=== PATIENT | female | born 1950 | race Caucasian/White ===

== ENCOUNTER → 2017-10-27 13:13 | Outpatient (CLI) | payer MEDICARE, OTHER, SELFPAY ==
[2017-10-27 13:53] LABS: Alanine Aminotransferase 32 IU/L (9-52); Albumin 3.9 g/dL (3.5-5.0); Albumin Globulin Ratio 1.5 (1.0-2.8); Alkaline Phosphatase 44 U/L (38-126); Aspartate Aminotransferase 27 IU/L (14-36); Bilirubin Total 0.4 mg/dL (0.2-1.3); Blood Urea Nitrogen 21 mg/dL (7-17); Calcium 9.7 mg/dL (8.4-10.2); Carbon Dioxide 25 mmol/L (22-32); Chloride 107 mmol/L (98-107); Estimated Glomerular Filt Rate > 60.0 mL/min (>60); Globulin 2.6 g/dL (1.7-4.1); Glucose 137 mg/dL (80-110); HEMOLYSIS < 15 (0-50); Potassium 3.9 mmol/L (3.4-5.1); Sodium 142 mmol/L (137-145); Total Protein 6.5 g/dL (6.3-8.2)
[2017-10-29 15:18] LABS: Cancer Antigen 27.29 8 U/mL (< 38)
== END ==
PROVIDERS: PCP Family Medicine; Visit Provider Internal Medicine Hematology & Oncology
DX: C50.911 Malignant neoplasm of unspecified site of right female breast (principal)
CPT/HCPCS: 36415; 80053; 86300

== ENCOUNTER → 2017-11-12 14:45 | Outpatient (CLI) | payer MEDICARE, OTHER, SELFPAY | PROVIDERS: PCP Family Medicine; Visit Provider Physician Assistant | DX: N39.0 Urinary tract infection, site not specified (principal) | CPT/HCPCS: 87077; 87086; 87186 ==

== ENCOUNTER → 2017-11-23 09:13 | Outpatient (CLI) | payer MEDICARE, OTHER, SELFPAY | PROVIDERS: PCP Family Medicine; Visit Provider Family Medicine | DX: R73.9 Hyperglycemia, unspecified (principal) | CPT/HCPCS: 36415; 83036 ==

== ENCOUNTER → 2018-01-21 09:05 | Outpatient (CLI) | payer MEDICARE, OTHER, SELFPAY ==
--- NOTE | 2018-01-21 09:06 | DI.RAD.S_ITS ---
PROCEDURE: XR SHOULDER LT MIN 2V INDICATIONS: left shoulder pain TECHNIQUE: 3 views of the shoulder were acquired. COMPARISON: None. FINDINGS: Bones: No fractures or dislocations. No suspicious bony lesions. Visualized ribs appear intact. Mild joint narrowing with periarticular osteophyte formation of the acromioclavicular and glenohumeral joint. Soft tissues: No suspicious soft tissue calcifications. IMPRESSION: Mild acromioclavicular and glenohumeral joint degeneration. Dictated by: Chevy Kent [facility] Interpreted: Tamanna Gongora MD on 01/21/2018 at 10:22 Approved by: Tamanna Gongora M.D. on 01/21/2018 at 10:50
== END ==
PROVIDERS: PCP Family Medicine; Visit Provider Family Medicine
DX: M25.512 Pain in left shoulder (principal); M19.012 Primary osteoarthritis, left shoulder
CPT/HCPCS: 73030

== ENCOUNTER → 2018-04-04 12:16 | Outpatient (CLI) | payer MEDICARE, OTHER, SELFPAY ==
--- NOTE | 2018-04-04 | DI.MG.S_ITS ---
BILATERAL DIGITAL SCREENING MAMMOGRAM 3D/2D WITH CAD: 04/04/2018 CLINICAL: Routine screening. Personal history of breast cancer. Comparison is made to exams dated: 04/01/2017 mammogram, 03/25/2016 mammogram, and 03/22/2015 mammogram - [facility]. The tissue of both breasts is heterogeneously dense. This may lower the sensitivity of mammography. Current study was also evaluated with a Computer Aided Detection (CAD) system. There are benign post operative findings in the right breast. There also are benign calcifications in both breasts. No significant masses, calcifications, or other findings are seen in either breast. There has been no significant interval change. IMPRESSION: There is no mammographic evidence of malignancy. A 1 year screening mammogram is recommended. This exam was interpreted at Station ID: [id number]. NOTE: For mammograms, a report in lay terms will be sent to the patient. Approximately 15% of breast malignancies will not be visualized mammographically. In the management of a palpable breast mass, a negative mammogram must not discourage biopsy of a clinically suspicious lesion. Electronically Signed By: Chato land/janet:04/04/2018 13:50:31 copy to: [employer] letter sent: Normal Exam ACR BI-RADS Category 2: Benign Finding(s) 3342F
== END ==
PROVIDERS: PCP Family Medicine
DX: Z12.31 Encounter for screening mammogram for malignant neoplasm of breast (principal); Z85.3 Personal history of malignant neoplasm of breast
CPT/HCPCS: 77063; 77067

== ENCOUNTER → 2018-04-25 13:12 | Outpatient (CLI) | payer MEDICARE, OTHER, SELFPAY ==
[2018-04-25 13:58] LABS: Add Manual Diff / Slide Review NO; Basophils Absolute Auto 100 /uL (0-100); Basophils Percent Auto 0.8 % (0-2); Eosinophils Absolute Auto 200 /uL (0-450); Eosinophils Percent Auto 2.3 % (2-4); Hemoglobin 12.9 g/dL (12.0-16.0); Lymphocytes Absolute Auto 2300 /uL (1100-4500); Lymphocytes Percent Auto 32.4 % (25-40); Mean Corpuscular HGB Conc 33.1 % (30-36); Mean Corpuscular Hemoglobin 31.7 PG (26-34); Mean Corpuscular Volume 95.9 fL (80-100); Monocytes Absolute Auto 600 /uL (0-900); Neutrophils Absolute Auto 4100 /uL (1500-7000); Neutrophils Percent Auto 56.5 % (50-75); Platelet Count 149 X10^3/uL (150-400); Red Blood Cell Count 4.07 X10^6/uL (4.0-5.2); Red Cell Distribution Width 14.1 % (11.6-14.8); White Blood Cell Count 7.2 X10^3/uL (4.5-11.0)
[2018-04-25 14:11] LABS: Alanine Aminotransferase 29 IU/L (9-52); Albumin Globulin Ratio 1.5 (1.0-2.8); Alkaline Phosphatase 61 U/L (38-126); Aspartate Aminotransferase 19 IU/L (14-36); BUN Creatinine Ratio 18.9 (6-22); Bilirubin Total 0.3 mg/dL (0.2-1.3); Blood Urea Nitrogen 17 mg/dL (7-17); Calcium 8.9 mg/dL (8.4-10.2); Carbon Dioxide 26 mmol/L (22-32); Chloride 105 mmol/L (98-107); Estimated Glomerular Filt Rate > 60.0 mL/min (>60); Globulin 2.6 g/dL (1.7-4.1); Glucose 119 mg/dL (80-110); HEMOLYSIS < 15 (0-50); Potassium 3.9 mmol/L (3.4-5.1); Sodium 140 mmol/L (137-145); Total Protein 6.6 g/dL (6.3-8.2)
== END ==
PROVIDERS: PCP Family Medicine
DX: C50.911 Malignant neoplasm of unspecified site of right female breast (principal); Z79.810 Long term (current) use of selective estrogen receptor modulators (SERMs)
CPT/HCPCS: 36415; 80053; 85025

== ENCOUNTER → 2018-08-23 09:25 | Outpatient (CLI) | payer MEDICARE, OTHER, SELFPAY ==
[2018-08-23 11:38] LABS: Hemoglobin A1C% w Est Avg Glu 5.7 % (4.0-6.0)
== END ==
PROVIDERS: PCP Family Medicine; Visit Provider Family Medicine
DX: R73.03 Prediabetes (principal)
CPT/HCPCS: 36415; 83036

== ENCOUNTER → 2018-11-16 08:54 | Outpatient (CLI) | payer MEDICARE, OTHER, SELFPAY ==
[2018-11-16 09:56] LABS: Hemoglobin A1C% w Est Avg Glu 5.8 % (4.0-6.0)
[2018-11-16 10:12] LABS: Cholesterol 153 mg/dL (140-199); HDL Cholesterol 42 mg/dL (40-60); LDL Cholesterol Calculated 89 mg/dL (<100); Triglycerides 111 mg/dL (35-150)
== END ==
PROVIDERS: PCP Family Medicine; Visit Provider Family Medicine
DX: E78.00 Pure hypercholesterolemia, unspecified (principal); R73.03 Prediabetes
CPT/HCPCS: 36415; 80061; 83036

== ENCOUNTER → 2018-12-19 12:16 | Outpatient (CLI) | payer MEDICARE, OTHER, SELFPAY | PROVIDERS: Family Provider Family Medicine; PCP Family Medicine | DX: C50.911 Malignant neoplasm of unspecified site of right female breast (principal); M85.852 Other specified disorders of bone density and structure, left thigh; Z78.0 Asymptomatic menopausal state; Z90.722 Acquired absence of ovaries, bilateral; Z79.810 Long term (current) use of selective estrogen receptor modulators (SERMs) | CPT/HCPCS: 77080 ==

== ENCOUNTER → 2019-04-06 08:56 | Outpatient (CLI) | payer MEDICARE, OTHER, SELFPAY ==
--- NOTE | 2019-04-06 08:59 | DI.MG.S_ITS ---
BILATERAL DIGITAL SCREENING MAMMOGRAM 3D/2D WITH CAD: 04/06/2019 CLINICAL: Routine screening. Personal history of right breast cancer. Comparison is made to exams dated: 04/04/2018 mammogram, 04/01/2017 mammogram, 03/25/2016 mammogram, 03/22/2015 mammogram, and 03/21/2014 mammogram - [facility]. The tissue of both breasts is heterogeneously dense. This may lower the sensitivity of mammography. Current study was also evaluated with a Computer Aided Detection (CAD) system. There are benign calcifications in both breasts. There also are benign post operative findings in the right breast. No significant masses, calcifications, or other findings are seen in either breast. There has been no significant interval change. IMPRESSION: There is no mammographic evidence of malignancy. A 1 year screening mammogram is recommended. This exam was interpreted at Station ID: [id number]. NOTE: For mammograms, a report in lay terms will be sent to the patient. Approximately 15% of breast malignancies will not be visualized mammographically. In the management of a palpable breast mass, a negative mammogram must not discourage biopsy of a clinically suspicious lesion. Electronically Signed By: Star Camilo M.D. slc/:04/06/2019 09:50:35 copy to: Eli Carroll M.D., [facility] [employer], ph: [phone], fax: [phone] letter sent: Normal Exam ACR BI-RADS Category 2: Benign Finding(s) 3342F
== END ==
PROVIDERS: Family Provider Family Medicine; PCP Family Medicine
DX: Z12.31 Encounter for screening mammogram for malignant neoplasm of breast (principal); C50.911 Malignant neoplasm of unspecified site of right female breast
CPT/HCPCS: 77063; 77067

== ENCOUNTER → 2019-04-17 08:21 | Outpatient (CLI) | payer MEDICARE, OTHER, SELFPAY ==
[2019-04-17 08:40] LABS: Add Manual Diff / Slide Review NO; Basophils Absolute Auto 100 /uL (0-100); Basophils Percent Auto 0.8 % (0-2); Eosinophils Absolute Auto 200 /uL (0-450); Eosinophils Percent Auto 2.5 % (2-4); Hematocrit 38.5 % (36-46); Hemoglobin 12.9 g/dL (12.0-16.0); Lymphocytes Absolute Auto 2000 /uL (1100-4500); Lymphocytes Percent Auto 29.9 % (25-40); Mean Corpuscular HGB Conc 33.5 % (30-36); Mean Corpuscular Hemoglobin 32.1 PG (26-34); Mean Corpuscular Volume 95.8 fL (80-100); Monocytes Absolute Auto 500 /uL (0-900); Monocytes Percent Auto 7.5 % (3-14); Neutrophils Absolute Auto 4000 /uL (1500-7000); Neutrophils Percent Auto 59.3 % (50-75); Platelet Count 156 X10^3/uL (150-400); Red Blood Cell Count 4.02 X10^6/uL (4.0-5.2); Red Cell Distribution Width 14.3 % (11.6-14.8); White Blood Cell Count 6.8 X10^3/uL (4.5-11.0)
[2019-04-17 08:52] LABS: Alanine Aminotransferase 23 IU/L (<35); Albumin 3.9 g/dL (3.5-5.0); Albumin Globulin Ratio 1.3 (1.0-2.8); Alkaline Phosphatase 44 U/L (38-126); Aspartate Aminotransferase 22 IU/L (14-36); BUN Creatinine Ratio 25.7 (6-22); Bilirubin Total 0.3 mg/dL (0.2-1.3); Blood Urea Nitrogen 18 mg/dL (7-17); Calcium 8.9 mg/dL (8.4-10.2); Carbon Dioxide 29 mmol/L (22-32); Chloride 108 mmol/L (98-107); Estimated Glomerular Filt Rate > 60.0 mL/min (>60); Globulin 2.9 g/dL (1.7-4.1); Glucose 99 mg/dL (80-110); HEMOLYSIS < 15 (0-50); Potassium 4.3 mmol/L (3.4-5.1); Sodium 142 mmol/L (137-145); Total Protein 6.8 g/dL (6.3-8.2)
[2019-04-17 08:55] LABS: Hemoglobin A1C% w Est Avg Glu 6.1 % (4.0-6.0)
== END ==
PROVIDERS: Family Provider Family Medicine; PCP Family Medicine
DX: C50.911 Malignant neoplasm of unspecified site of right female breast (principal); R73.03 Prediabetes
CPT/HCPCS: 36415; 80053; 83036; 85025

== ENCOUNTER → 2019-10-24 08:42 | Outpatient (CLI) | payer MEDICARE, OTHER, SELFPAY ==
[2019-10-25 07:40] LABS: COVID19 Sendout Not Detected (Not Detect)
== END ==
PROVIDERS: Family Provider Family Medicine; PCP Family Medicine; Visit Provider Nurse Practitioner
DX: Z11.59 Encounter for screening for other viral diseases (principal)
CPT/HCPCS: 87635

== ENCOUNTER 2019-10-27 07:27 | Day surgery (SDC) | payer MEDICARE, OTHER, SELFPAY ==
--- NOTE | 2019-10-27 | PATH_ITS ---
[facility] Accession Number: [id number] . 01 Material submitted: . body - POLYP AT 100CM . 02 Diagnosis: Colon, Polyp at 100 cm, Biopsy: Tubular adenoma. MRV 10/31/2019 1401 Local . 02 Electronically signed: . Vaishali Parker MD, Pathologist NPI- [id number] . 01 Gross description: . POLYP AT 100CM: Received in formalin is 1 fragment(s) of zamarripa, soft tissue measuring 0.4 x 0.3 x 0.3 cm which is inked, bisected and submitted entirely in 1 cassette(s) /QBJ 10/28/2019 0657 Local . 02 Pathologist provided ICD-10: D12.6 . 02 CPT . 212750 Performed at: 01 [facility] [address] [id number] MD Yuri Dawson MD Phone: [phone] Performed at: 02 [facility] [address] [place], [place] [id number] MD Vaishali Parker MD Phone: [phone]
[2019-10-27 07:59] VITALS: BP 155/92; PULSE 97; RESP 16; TEMP 36.4; O2SAT 96; BMI 38.5
[2019-10-27] MEDS: SODIUM CHLORIDE 0.9% 1,000 ML 200 ML IV (07:59)
--- NOTE | 2019-10-27 08:05 | PM.HP.1 ---
History of Present Illness History of Present Illness Date Patient Seen: 10/27/19 Time Patient Seen: 08:05 Chief complaint: SCREENING COLONOSCOPY Narrative: This is a 69-year-old woman with history of screening colonoscopy 10 years ago. She says that was normal. She was told to come back in 10 years. Since then she has not had any changes in her bowel habits, melena, hematochezia, unexplained abdominal pain, unexplained weight loss. She denies any known significant family history of colon polyps or colon cancers. However, she was adopted and is not aware of all those details. She denies any significant medical problems or any cardiac abnormalities. She has been told she has long QT syndrome. She also has some nausea with anesthesia. ROS: Sleep apnea, anxiety, arthritis, ankle pain/back pain, urinary frequency/urgency. Thirteen system review is otherwise negative other than as mentioned below and in HPI. PE: GENERAL: Well groomed and cooperative. Appears stated age. Answers questions promptly and appropriately. Vital signs noted. HENT: Normocephalic, atraumatic. Hearing intact. EYES: Conjunctiva pink, sclera white, no periorbital swelling. CARDIOVASCULAR: Regular rate. No pedal edema. RESPIRATORY: Non-tachypneic, breathing comfortably on room air. GASTROINTESTINAL: Abdomen soft and non-distended GENITALURINARY: No flank tenderness. MUSCULOSKELETAL: Equal tone and mass bilaterally. SKIN: Warm, dry, soft, appropriate color for ethnicity. No other lesions, rashes, or wounds. NEURO: Alert and Oriented X 3. No gross sensory deficits, or cognitive issues. PSYCH: Appropriate affect and mood. Patient History Medical History Breast cancer (Chronic ~2013) Chicken pox (Resolved ~1955) Chronic back pain (Chronic ~1998) Endometriosis (Chronic ~1989) Essential hypertension (Chronic) Fractures (Resolved ~2008) Measles (Resolved ~1956) Osteoporosis (Chronic ~2013) Surgical History Anesthesia (Resolved) History of ankle surgery (Resolved ~2008) History of hysterectomy (Resolved ~1989) History of lumpectomy (Resolved ~2013) Torn rotator cuff (Resolved ~2010) Family & Social History Family History Unknown No problems noted. Social History: household members spouse lives independently Yes caregiver/support person No Tobacco & Substance use: Smoking Status Never smoker alcohol intake current Meds Home Medications and Allergies Home Medications Medication Instructions Recorded Confirmed Type acetaminophen [Tylenol Extra 500 mg PO Q6H PRN 11/03/17 10/27/19 History Strength] calcium carbonate 600 mg PO BID 11/03/17 10/27/19 History cholecalciferol (vitamin D3) 2,000 unit PO DAILY 11/03/17 10/27/19 History [Vitamin D3] ibuprofen-diphenhydramine cit 2 cap PO BEDTIME PRN 11/03/17 10/27/19 History [Advil PM] Respironics Dreamstation CPAP #1 ea 05/18/18 11/16/18 History cyclobenzaprine 5 mg tablet 5 mg PO TID PRN #30 tab 11/22/18 10/27/19 Rx tamoxifen 20 mg PO QDAY #30 tab 03/20/19 10/27/19 Rx lisinopril 5 mg tablet 5 mg PO DAILY #30 tab 09/26/19 10/27/19 Rx Allergies Allergy/AdvReac Type Severity Reaction Status Date / Time Cultivated Oat Pollen Allergy Unknown Sinus Uncoded 10/27/19 07:50 (POLLEN,CULTIVATED OAT) headache, itchy eyes Assessment & Plan Assessment and plan (1) At average risk for colon cancer: Status: Acute Assessment & Plan narrative: Risks and benefits of screening colonoscopy and possible polypectomy were discussed with the patient including risk of bleeding, perforation, need for additional procedures, risks of anesthesia. The patient desires to proceed with the colonoscopy procedure. COVID-19 COVID-19 status: Negative Result date/Date tested (Pos, Neg/Pending): 10/24/19 Time Spent With Patient Time with patient: 15-24 minutes Quality VTE Deep Vein Thrombosis/Pulmonary Embolism Present on Admission: No
[2019-10-27] MEDS: ONDANSETRON 4 MG/2 ML INJ IV (08:15)
--- NOTE | 2019-10-27 08:15 | P.OP.ENDO_ITS ---
Operative Date/Time/Diagnoses Date of procedure: 10/27/19 Time of procedure: 08:15 Pre-op diagnosis: Average risk for colon cancer Post-op diagnosis: other (single polyp ) Procedure & Clinicians Study performed: Colonoscopy Procedural sedation performed by the endoscopist Polypectomy from 100 cm using cold snare Indications: Average risk for colon cancer, 10 years since last screening colonoscopy Surgeon: Rosy Cisneros Procedure Notes SCOAP/Timeout: Performed Procedure in detail: The patient was brought to the room and placed in left lateral decubitus position with all bony prominences padded. A time-out was performed and then the patient was given procedural sedation starting with 2 mg of Versed and 100 mcg of fentanyl. Total of 4 mg of Versed and 200 micro g of fentanyl were used for the entire procedure. Vitals were monitored throughout the procedure and remained stable. Once adequately sedated, the procedure was begun. A rectal exam was performed revealing no abnormalities. The colonoscope was then introduced to the rectum and advanced to the cecum in the usual fashion. The colon was quite tortuous and required multiple maneuvers to reach the cecum safely, including using the scope stiffener, turning the patient on he r back, and using counter pressure on the abdomen in order to pass the scope.. The cecum was identified by the appendiceal orifice, the mucosal tri-fold, and the ileocecal valve. The scope was then retracted while rotating side to side and examining each mucosal fold. A 5 mm polyp was found at 100 cm and removed completely with cold snare. It was collected and sent for pathology. At the conclusion of the procedure retroflexion was performed and small grade 1-2 internal hemorrhoids without stigmata of bleeding were seen. The scope was then withdrawn from the rectum the procedure was concluded. The patient tolerated the procedure well and was transferred to the PACU in stable condition. Scope withdrawal time: 8 Sedation minutes: 31 Findings: polyp (Single adenomatous appearing polyp at 100 cm) Specimen(s): other (Polyp) Complications: none Impression: Single polyp, the remainder of the colon appeared normal Post-procedure Recommendations: Colonscopy in 10 years (So long as pathology results are low- grade) Follow up: weeks Disposition: PACU
[2019-10-27] MEDS: MIDAZOLAM 5 MG/5 ML VIAL IV (08:19)
[2019-10-27] MEDS: fentaNYL 250 MCG/5 ML INJ IV (08:19)
[2019-10-27 08:56] VITALS: BP 139/81; PULSE 89; RESP 20; TEMP 36.3; O2SAT 93
[2019-10-27 09:01] VITALS: BP 144/80; PULSE 86; RESP 20; TEMP 35.7; O2SAT 92
[2019-10-27 09:13] VITALS: BP 141/81; PULSE 84; RESP 20; TEMP 36.3; O2SAT 92
== END 2019-10-27 09:15 | disposition home or self-care (01) ==
PROVIDERS: Family Provider Family Medicine; PCP Family Medicine; Referring Provider Family Medicine; Visit Provider Surgery
PROC: 0DJD8ZZ Inspection of Lower Intestinal Tract, Via Natural or Artificial Opening Endoscopic (ICD-10-PCS; CPT 45378; principal; 2019-10-27 08:30)
DX: Z12.11 Encounter for screening for malignant neoplasm of colon (principal); K64.0 First degree hemorrhoids; D12.6 Benign neoplasm of colon, unspecified
CPT/HCPCS: 45385; 99152; 99153; J2250; J2405; J3010

== ENCOUNTER → 2020-04-08 08:13 | Outpatient (CLI) | payer MEDICARE, OTHER, SELFPAY ==
--- NOTE | 2020-04-08 08:15 | DI.MG.S_ITS ---
BILATERAL DIGITAL SCREENING MAMMOGRAM 3D/2D WITH CAD POST LUMPECTOMY: 04/08/2020 CLINICAL: Routine screening. Breast cancer. Comparison is made to exams dated: 04/06/2019 mammogram, 04/04/2018 mammogram, and 04/01/2017 mammogram - [facility]. The tissue of both breasts is heterogeneously dense. This may lower the sensitivity of mammography. Current study was also evaluated with a Computer Aided Detection (CAD) system. There are benign calcifications in both breasts. There also are benign post operative findings in the right breast. No significant masses, calcifications, or other findings are seen in either breast. There has been no significant interval change. IMPRESSION: BENIGN There is no mammographic evidence of malignancy. A 1 year screening mammogram is recommended. This exam was interpreted at Station ID: [id number]. NOTE: For mammograms, a report in lay terms will be sent to the patient. Approximately 15% of breast malignancies will not be visualized mammographically. In the management of a palpable breast mass, a negative mammogram must not discourage biopsy of a clinically suspicious lesion. Electronically Signed By: Nathan Del Rio M.D., jr/janet:04/08/2020 09:16:01 copy to: Eli Carroll M.D., [facility] [employer], ph: [phone], fax: [phone] letter sent: Normal Exam ACR BI-RADS Category 2: Benign Finding(s) 3342O
== END ==
PROVIDERS: Family Provider Family Medicine; PCP Family Medicine; Referring Provider Family Medicine; Visit Provider Family Medicine
DX: Z12.31 Encounter for screening mammogram for malignant neoplasm of breast (principal); C50.911 Malignant neoplasm of unspecified site of right female breast
CPT/HCPCS: 77063; 77067

== ENCOUNTER → 2020-05-23 08:28 | Outpatient (CLI) | payer MEDICARE, OTHER, SELFPAY ==
[2020-05-23 09:11] LABS: Add Manual Diff / Slide Review NO; Basophils Absolute Auto 100 /uL (0-100); Basophils Percent Auto 1.5 % (0-2); Eosinophils Absolute Auto 200 /uL (0-450); Eosinophils Percent Auto 3.7 % (2-4); Hematocrit 41.4 % (36-46); Hemoglobin 13.6 g/dL (12.0-16.0); Lymphocytes Absolute Auto 2200 /uL (1100-4500); Lymphocytes Percent Auto 38.6 % (25-40); Mean Corpuscular HGB Conc 32.8 % (30-36); Mean Corpuscular Hemoglobin 31.2 PG (26-34); Mean Corpuscular Volume 94.9 fL (80-100); Monocytes Absolute Auto 500 /uL (0-900); Neutrophils Absolute Auto 2700 /uL (1500-7000); Neutrophils Percent Auto 47.2 % (50-75); Platelet Count 163 X10^3/uL (150-400); Red Blood Cell Count 4.36 X10^6/uL (4.0-5.2); Red Cell Distribution Width 14.5 % (11.6-14.8); White Blood Cell Count 5.6 X10^3/uL (4.5-11.0)
[2020-05-23 09:38] LABS: Alanine Aminotransferase 28 IU/L (<35); Albumin 4.1 g/dL (3.5-5.0); Albumin Globulin Ratio 1.5 (1.0-2.8); Alkaline Phosphatase 52 U/L (38-126); Aspartate Aminotransferase 30 IU/L (14-36); BUN Creatinine Ratio 24.7 (6-22); Bilirubin Total 0.3 mg/dL (0.2-1.3); Bilirubin Unconjugated 0.4 mg/dL (0.0-1.1); Blood Urea Nitrogen 18 mg/dL (7-17); Estimated Glomerular Filt Rate > 60.0 mL/min (>60); Globulin 2.8 g/dL (1.7-4.1); HEMOLYSIS < 15 (0-50); Total Protein 6.9 g/dL (6.3-8.2)
== END ==
PROVIDERS: Family Provider Family Medicine; PCP Family Medicine; Referring Provider Podiatrist; Visit Provider Podiatrist
DX: B35.1 Tinea unguium (principal); B35.3 Tinea pedis
CPT/HCPCS: 36415; 80076; 82565; 84520; 85025

== ENCOUNTER → 2020-06-26 08:25 | Outpatient (CLI) | payer MEDICARE, OTHER, SELFPAY ==
[2020-06-26 09:12] LABS: Add Manual Diff / Slide Review NO; Basophils Absolute Auto 100 /uL (0-100); Basophils Percent Auto 0.9 % (0-2); Eosinophils Absolute Auto 100 /uL (0-450); Hematocrit 41.6 % (36-46); Hemoglobin 13.6 g/dL (12.0-16.0); Lymphocytes Absolute Auto 2200 /uL (1100-4500); Lymphocytes Percent Auto 35.4 % (25-40); Mean Corpuscular HGB Conc 32.8 % (30-36); Mean Corpuscular Hemoglobin 31.5 PG (26-34); Mean Corpuscular Volume 95.9 fL (80-100); Monocytes Absolute Auto 600 /uL (0-900); Monocytes Percent Auto 9.3 % (3-14); Neutrophils Absolute Auto 3200 /uL (1500-7000); Neutrophils Percent Auto 52.4 % (50-75); Platelet Count 175 X10^3/uL (150-400); Red Blood Cell Count 4.34 X10^6/uL (4.0-5.2); Red Cell Distribution Width 14.5 % (11.6-14.8); White Blood Cell Count 6.1 X10^3/uL (4.5-11.0)
[2020-06-26 10:05] LABS: Alanine Aminotransferase 23 IU/L (<35); Albumin Globulin Ratio 1.5 (1.0-2.8); Alkaline Phosphatase 52 U/L (38-126); Aspartate Aminotransferase 26 IU/L (14-36); BUN Creatinine Ratio 20.3 (6-22); Bilirubin Total 0.4 mg/dL (0.2-1.3); Bilirubin Unconjugated 0.3 mg/dL (0.0-1.1); Blood Urea Nitrogen 15 mg/dL (7-17); Estimated Glomerular Filt Rate > 60.0 mL/min (>60); Globulin 2.6 g/dL (1.7-4.1); HEMOLYSIS < 15 (0-50); Total Protein 6.6 g/dL (6.3-8.2)
== END ==
PROVIDERS: Family Provider Family Medicine; PCP Family Medicine; Referring Provider Podiatrist; Visit Provider Podiatrist
DX: B35.1 Tinea unguium (principal); B35.3 Tinea pedis
CPT/HCPCS: 36415; 80076; 82565; 84520; 85025

== ENCOUNTER → 2021-04-12 09:52 | Outpatient (CLI) | payer MEDICARE, OTHER, SELFPAY ==
--- NOTE | 2021-04-12 09:53 | DI.MG.S_ITS ---
BILATERAL DIGITAL SCREENING MAMMOGRAM 3D/2D WITH CAD: 04/12/2021 CLINICAL: Routine screening. Personal history of right breast cancer. Comparison is made to exams dated: 04/08/2020 mammogram, 04/06/2019 mammogram, and 04/04/2018 mammogram - [facility]. The tissue of both breasts is heterogeneously dense. This may lower the sensitivity of mammography. Current study was also evaluated with a Computer Aided Detection (CAD) system. There are benign calcifications in both breasts. There also are benign post operative findings in the right breast. No significant masses, calcifications, or other findings are seen in either breast. There has been no significant interval change. IMPRESSION: BENIGN There is no mammographic evidence of malignancy. A 1 year screening mammogram is recommended. This exam was interpreted at Station ID: [id number]. NOTE: For mammograms, a report in lay terms will be sent to the patient. Approximately 15% of breast malignancies will not be visualized mammographically. In the management of a palpable breast mass, a negative mammogram must not discourage biopsy of a clinically suspicious lesion. Electronically Signed By: Esperanza pate/janet:04/14/2021 12:11:57 copy to: Eli Carroll M.D., [facility] [place], ph: [phone], fax: [phone] letter sent: Normal Exam ACR BI-RADS Category 2: Benign Finding(s) 3342Y
== END ==
PROVIDERS: Family Provider Family Medicine; PCP Family Medicine; Referring Provider Family Medicine; Visit Provider Family Medicine
DX: Z12.31 Encounter for screening mammogram for malignant neoplasm of breast (principal); Z85.3 Personal history of malignant neoplasm of breast
CPT/HCPCS: 77063; 77067

== ENCOUNTER 2021-08-10 10:13 | Emergency (ER) | payer MEDICARE, OTHER, SELFPAY ==
[2021-08-10 10:45] VITALS: BP 151/74; PULSE 71; RESP 18; TEMP 36.8; O2SAT 96
--- NOTE | 2021-08-10 10:59 | DI.RAD.S_ITS ---
PROCEDURE: XR WRIST LT MIN 3V INDICATIONS: trip and fall TECHNIQUE: 4 views of the wrist were acquired. COMPARISON: [facility], , WRIST MINIMUM 3 VIEWS LEFT, 10/17/2015, 9:26. FINDINGS: Bones: Punctate corticated calcification along the radial styloid likely sequela of remote trauma versus degenerative changes. No acute fracture. Mild degenerative changes of the wrist and hand. Alignment is normal. Scaphoid view: No fracture Soft tissues: No suspicious soft tissue calcifications. Mild soft tissue swelling of the dorsal aspect of the wrist. IMPRESSION: No acute osseous abnormality. Dictated by: Miguel Dee D.O. on 08/10/2021 at 10:32 Approved by: Miguel Dee D.O. on 08/10/2021 at 10:34
--- NOTE | 2021-08-10 12:08 | ED_ITS ---
HPI - Extremity Injury (Upper) <Bonifacio Toledo PA-C - Last Filed: 08/10/21 19:33> General Chief Complaint: Extremity Injury, Upper Stated Complaint: poss. broken lt wrist Time Seen by Provider: 08/10/21 11:57 Source: patient Mode of arrival: Ambulatory History of Present Illness HPI narrative: Patient is a 71-year-old female who presents to the emergency department for evaluation left wrist pain. Patient states that approximately 6 hours ago she tripped over a dog toy in her home and landed on her left wrist. She states she has been experiencing personally worsening pain in the left wrist, stating that the pain is sharp with intermittent tingling sensations. Of note, she also states that pain is worse with movement. She denies hitting her head or losing consciousness as a result of the fall and states that she is not anticoagulated daily. She denies any fever, chills, chest pain, cough, shortness of breath, nausea, vomiting, diarrhea, constipation, abdominal pain, dysuria, hematuria, or any other concerning symptoms. No further concerns were voiced at this time. Related Data Home Medications Medication Instructions Recorded Confirmed acetaminophen 500 mg tablet 500 mg PO Q6H PRN Pain (Scale 11/03/17 10/30/20 (Tylenol Extra Strength) Score 4-6) calcium carbonate 600 mg calcium 600 mg PO BID 11/03/17 10/30/20 (1,500 mg) tablet ibuprofen-diphenhydramine citrate 2 cap PO BEDTIME PRN Pain (Scale 11/03/17 10/30/20 200 mg-38 mg tablet (Advil PM) Score 4-6) Respironics Dreamstation CPAP #1 ea 05/18/18 10/30/20 Previous Rx's Medication Instructions Recorded lisinopril 5 mg tablet 5 mg PO DAILY #90 tabs 10/30/20 Allergies Allergy/AdvReac Type Severity Reaction Status Date / Time Cultivated Oat Pollen Allergy Unknown Sinus Uncoded 01/03/20 08:18 (POLLEN,CULTIVATED OAT) headache, itchy eyes Review of Systems <Bonifacio Toledo PA-C - Last Filed: 08/10/21 19:33> Constitutional Constitutional: Denies chills, Denies fatigue, Denies fever(s), Denies frequent falls, Denies lethargy and Denies weakness ENT Ears, Nose, Mouth, and Throat: Denies neck pain Cardiovascular Cardiovascular: Denies chest pain, Denies irregular heart rhythm, Denies lightheadedness, Denies palpitations, Denies dyspnea, Denies dyspnea on exertion and Denies orthopnea Respiratory Respiratory: Denies dyspnea and Denies dyspnea on exertion Gastrointestinal Gastrointestinal: Denies abdominal pain, Denies change in bowel habits, Denies diarrhea, Denies nausea and Denies vomiting Genitourinary Genitourinary: Denies hematuria, Denies flank pain, Denies urinary incontinence and Denies urinary urgency Musculoskeletal Musculoskeletal: Denies back pain, Denies deformity, Reports arthralgias (Left wrist), Denies joint swelling, Denies muscle weakness, Denies neck pain, Denies numbness and Reports tingling Integumentary/Breasts Skin/Breast: Denies pruritus, Denies erythema, Denies rash and Denies wounds Neurologic Neurologic: Denies frequent falls, Denies numbness, Reports tingling and Denies weakness Endocrine Endocrine: Denies fatigue and Denies palpitations Patient History <Bonifacio Toledo PA-C - Last Filed: 08/10/21 19:33> Medical History Breast cancer (~2013) Chicken pox (~1955) Chronic back pain (~1998) Endometriosis (~1989) Essential hypertension Fractures (~2008) Measles (~1956) Osteoporosis (~2013) Surgical History Anesthesia History of ankle surgery (~2008) History of hysterectomy (~1989) History of lumpectomy (~2013) Torn rotator cuff (~2010) Family History Unknown No problems noted. Social History marital status: number of children: 2 household members: spouse lives independently: Yes caregiver/support person: No housing: house occupational status: previously employed current occupational exposures/hazards: No seatbelt use: always Smoking Status: Never smoker second hand exposure: No alcohol intake: current substance use type: does not use Smoking Status: Never smoker alcohol intake frequency: holidays/special occasions only Substance Use Type: does not use Exam <Bonifacio Toledo PA-C - Last Filed: 08/10/21 19:33> Narrative Exam Narrative: GENERAL: 71 year old patient appears stated age. Well-developed patient, in no acute distress. HEAD: Atraumatic. Normocephalic. EYES: Pupils equal round and reactive. Extraocular motions intact. No scleral icterus. No injection or drainage. ENT: Nose without bleeding, purulent drainage. Throat without erythema, tonsill ar hypertrophy or exudate. Airway patent. NECK: Trachea midline. Non tender CARDIOVASCULAR: Regular rate and rhythm without murmurs, gallops, or rubs. RESPIRATORY: Clear to auscultation. Breath sounds equal bilaterally. No wheezes, rales, or rhonchi. GASTROINTESTINAL: Abdomen soft, non-tender, nondistended. EXTREMITIES: No edema. Mild tenderness to palpation appreciated generally about the left wrist without any signs of gross deformity. No overlying erythema or ecchymosis appreciated. Patient is able to pronate and supinate the hands bilaterally without any difficulty or discomfort. Good sensation light touch appreciated throughout the bilateral upper extremities. Gross motor function intact throughout the bilateral upper extremities. BACK: Nontender without deformity or crepitance. No flank tenderness. NEURO: AOx3. SKIN: No rash or erythema of visible areas Initial Vital Signs Initial Vital Signs: Vital Signs Temperature 98.2 F 08/10/21 10:45 Pulse Rate 71 08/10/21 10:45 Respiratory Rate 18 08/10/21 10:45 Blood Pressure 151/74 H 08/10/21 10:45 Pulse Oximetry 96 08/10/21 10:45 Oxygen Delivery Method 08/10/21 10:45 <Kayode Fernandez MD - Last Filed: 08/10/21 20:56> Initial Vital Signs Initial Vital Signs: Vital Signs Temperature 98.2 F 08/10/21 10:45 Pulse Rate 71 08/10/21 10:45 Respiratory Rate 18 08/10/21 10:45 Blood Pressure 151/74 H 08/10/21 10:45 Pulse Oximetry 96 08/10/21 10:45 Oxygen Delivery Method 08/10/21 10:45 Course <Bonifacio Toledo PA-C - Last Filed: 08/10/21 19:33> Course Course Narrative: X-ray of left wrist obtained. No acute bony abnormality such as fracture dislocation identified. Orders Ordered: ED Orders 08/10/21 10:59 XR wrist LT min 3V Stat Vital Signs Vital signs: Vital Signs - 8 hr 08/10/21 12:14 Pulse Rate 65 Respiratory Rate 16 Blood Pressure 140/63 Pulse Oximetry 96 Oxygen Delivery Method Room Air <Kayode Fernandez MD - Last Filed: 08/10/21 20:56> Orders Ordered: ED Orders 08/10/21 10:59 XR wrist LT min 3V Stat Vital Signs Vital signs: Vital Signs - 8 hr 08/10/21 12:14 Pulse Rate 65 Respiratory Rate 16 Blood Pressure 140/63 Pulse Oximetry 96 Oxygen Delivery Method Room Air MDM - Extremity Injury (Upper) <Bonifacio Toledo PA-C - Last Filed: 08/10/21 19:33> Imaging Data Extremity x-ray #1: Radiologist's Impression: PROCEDURE:? XR WRIST LT MIN 3V ? INDICATIONS: trip and fall ? TECHNIQUE:? 4 views of the wrist were acquired.? ? COMPARISON:? [facility], , WRIST MINIMUM 3 VIEWS LEFT, 10/17/2015, 9:26. ? FINDINGS:? ? Bones:? Punctate corticated calcification along the radial styloid likely sequela of remote trauma versus degenerative changes.? No acute fracture.? Mild degenerative changes of the wrist and hand.? Alignment is normal. ? Scaphoid view:? No fracture ? Soft tissues:? No suspicious soft tissue calcifications.? Mild soft tissue swelling of the dorsal aspect of the wrist. ? IMPRESSION:? ? No acute osseous abnormality. ? ? Dictated by: Miguel Dee D.O. on 08/10/2021 at 10:32 ? ? Approved by: Miguel Dee D.O. on 08/10/2021 at 10:34 ? [facility] Narrative Medical decision making narrative: Differential diagnosis to consider but not limited to fracture versus dislocation versus sprain versus strain. X-ray imaging obtained in the emergency department today did not show signs of acute bony abnormality such as fracture or dislocation. I discussed these results with the patient and encouraged her to use RICE therapy. Patient expresses understanding and agrees to plan. I urged her to follow up with primary care for further evaluation and management. Strict return precautions were discussed with the patient prior to discharge. Discharge Plan Departure Patient Disposition: Home Clinical Impression: Acute pain of left wrist Instructions: DI for Wrist Sprain Activity Restrictions/Additional Instructions: *You have been diagnosed with left wrist pain *What to do: *Please continue to take your regular medications as directed. [ ] New medication prescriptions sent to your pharmacy: [ ] [ ] New medication written as a paper prescription [X] No new medications given You were evaluated in the emergency department today for left wrist pain. X-ray imaging obtained in the emergency department today did not show signs of acute bony abnormality such as fracture or dislocation. I recommend taking Tylenol and ibuprofen as needed for pain management. Additionally, he can apply ice to the painful area and keep the left upper extremity elevated at rest to reduce swelling. Please follow-up with the primary care provider within the next few days for further evaluation and management. Please do not hesitate to return to the emergency department if you experience worsening pain, loss of sensation in the extremity, worsening swelling, or any other concerning symptoms. *Please follow up with your primary care provider in 2-3 days, call for an appointment. Let them know you were seen in the Emergency Department and that we ask that you be seen in follow up. We will electronically transmit a record of today's note if your PCP is in our system *If you do not have a primary care provider please contact the [facility] Resource line at [phone]. They will ask some questions about your medical history and help get you set up with a doctor in the community. *Return to Emergency Department if you should have any new, worsening or concerning symptoms, such as fever greater than 101 F, shaking chills, worsening pain, persistent vomiting or other bothersome symptoms. Prescriptions: No Action lisinopril 5 mg tablet 5 mg PO DAILY Qty: 90 3RF acetaminophen [Tylenol Extra Strength] 500 mg Tablet 500 mg PO Q6H PRN (Reason: Pain (Scale Score 4-6)) calcium carbonate 600 mg calcium (1,500 mg) Tablet 600 mg PO BID ibuprofen-diphenhydramine cit [Advil PM] 200-38 mg Tablet 2 cap PO BEDTIME PRN (Reason: Pain (Scale Score 4-6)) (DME) Respironics Dreamstation CPAP Qty: 1 Dose Instruction: As directed Label Comments: Pressure: 6-12 cmH2O DME: [facility] Rx Instructions: As directed Referrals: Eli Carroll MD [Primary Care Provider] - Visit Report Forms: Patient Portal/API <Kayode Fernandez MD - Last Filed: 08/10/21 20:56> Cosign ED Attending Cosignature Attestation: I was immediately available in the department for consultation. Supervised by Kayode Fernandez MD
[2021-08-10 12:14] VITALS: BP 140/63; PULSE 65; RESP 16; O2SAT 96
== END 2021-08-10 12:35 | disposition home or self-care (01) ==
PROVIDERS: Emergency Provider Physician Assistant; Family Provider Family Medicine; PCP Family Medicine
DX: M25.532 Pain in left wrist (principal); W19.XXXA Unspecified fall, initial encounter
CPT/HCPCS: 73110; 99283

== ENCOUNTER → 2021-11-04 08:10 | Outpatient (CLI) | payer MEDICARE, OTHER, SELFPAY ==
[2021-11-04 08:44] LABS: Add Manual Diff / Slide Review NO; Basophils Absolute Auto 100 /uL (0-100); Basophils Percent Auto 1.2 % (0-2); Eosinophils Absolute Auto 100 /uL (0-450); Hematocrit 41.3 % (36-46); Hemoglobin 14.1 g/dL (12.0-16.0); Lymphocytes Absolute Auto 2300 /uL (1100-4500); Lymphocytes Percent Auto 36.7 % (25-40); Mean Corpuscular Hemoglobin 31.7 PG (26-34); Mean Corpuscular Volume 93.1 fL (80-100); Monocytes Absolute Auto 500 /uL (0-900); Monocytes Percent Auto 8.4 % (3-14); Neutrophils Absolute Auto 3300 /uL (1500-7000); Neutrophils Percent Auto 51.7 % (50-75); Platelet Count 164 X10^3/uL (150-400); Red Blood Cell Count 4.44 X10^6/uL (4.0-5.2); Red Cell Distribution Width 14.4 % (11.6-14.8); White Blood Cell Count 6.4 X10^3/uL (4.5-11.0)
[2021-11-04 08:59] LABS: Alanine Aminotransferase 18 IU/L (<35); Albumin 4.1 g/dL (3.5-5.0); Albumin Globulin Ratio 1.3 (1.0-2.8); Alkaline Phosphatase 55 U/L (38-126); Aspartate Aminotransferase 20 IU/L (14-36); Bilirubin Total 0.5 mg/dL (0.2-1.3); Blood Urea Nitrogen 19 mg/dL (7-17); Calcium 9.2 mg/dL (8.4-10.2); Carbon Dioxide 29 mmol/L (22-32); Chloride 104 mmol/L (98-107); Estimated Glomerular Filt Rate > 60 mL/min (>60); Globulin 3.1 g/dL (1.7-4.1); Glucose 107 mg/dL (80-110); HEMOLYSIS < 15 (0-50); Potassium 4.2 mmol/L (3.4-5.1); Sodium 141 mmol/L (137-145); Total Protein 7.2 g/dL (6.3-8.2)
== END ==
PROVIDERS: Family Provider Family Medicine; PCP Family Medicine; Referring Provider Internal Medicine Hematology & Oncology; Visit Provider Internal Medicine Hematology & Oncology
DX: C50.911 Malignant neoplasm of unspecified site of right female breast (principal)
CPT/HCPCS: 36415; 80053; 85025

== ENCOUNTER → 2021-12-12 09:50 | Outpatient (CLI) | payer MEDICARE, OTHER, SELFPAY | PROVIDERS: Family Provider Family Medicine; PCP Family Medicine; Referring Provider Internal Medicine Hematology & Oncology; Visit Provider Internal Medicine Hematology & Oncology | DX: M81.0 Age-related osteoporosis without current pathological fracture (principal); Z78.0 Asymptomatic menopausal state; Z79.890 Hormone replacement therapy; Z90.710 Acquired absence of both cervix and uterus | CPT/HCPCS: 77080 ==

== ENCOUNTER → 2022-01-05 08:05 | Outpatient (CLI) | payer MEDICARE, OTHER, SELFPAY ==
[2022-01-05 09:37] LABS: Hemoglobin A1C% w Est Avg Glu 6.2 % (4.0-6.0)
[2022-01-05 10:07] LABS: Cholesterol 223 mg/dL (140-199); HDL Cholesterol 46 mg/dL (40-60); LDL Cholesterol Calculated 153 mg/dL (<100); Triglycerides 121 mg/dL (35-150)
[2022-01-05 10:11] LABS: Microalbumi Creatinin Ratio Ur 38.4 ug/mg CR (<30)
== END ==
PROVIDERS: Family Provider Family Medicine; PCP Family Medicine; Referring Provider Family Medicine; Visit Provider Family Medicine
DX: R73.03 Prediabetes (principal); I10 Essential (primary) hypertension
CPT/HCPCS: 36415; 80061; 82043; 82570; 83036

== ENCOUNTER → 2022-03-05 08:35 | Outpatient (CLI) | payer MEDICARE, OTHER, SELFPAY ==
[2022-03-05 10:19] LABS: Cholesterol 133 mg/dL (140-199); HDL Cholesterol 50 mg/dL (40-60); LDL Cholesterol Calculated 60 mg/dL (<100); Triglycerides 114 mg/dL (35-150)
== END ==
PROVIDERS: Family Provider Family Medicine; PCP Family Medicine; Referring Provider Family Medicine; Visit Provider Family Medicine
DX: E78.00 Pure hypercholesterolemia, unspecified (principal); E78.5 Hyperlipidemia, unspecified
CPT/HCPCS: 36415; 80061

== ENCOUNTER → 2022-04-18 11:15 | Outpatient (CLI) | payer MEDICARE, OTHER, SELFPAY ==
--- NOTE | 2022-04-18 | DI.MG.S_ITS ---
BILATERAL DIGITAL SCREENING MAMMOGRAM 3D/2D WITH CAD: 04/18/2022 CLINICAL: Routine screening. Personal history of right breast cancer. Comparison is made to exams dated: 04/12/2021 mammogram, 04/08/2020 mammogram, and 04/06/2019 mammogram - [facility]. Both breasts are heterogeneously dense, which may obscure small masses (category c / 51-75% glandular tissue). Current study was also evaluated with a Computer Aided Detection (CAD) system. There are benign calcifications in both breasts. There also are benign post operative findings in the right breast. No significant masses, calcifications, or other findings are seen in either breast. There has been no significant interval change. IMPRESSION: BENIGN There is no mammographic evidence of malignancy. A 1 year screening mammogram is recommended. This exam was interpreted at Station ID: [id number]. NOTE: For mammograms, a report in lay terms will be sent to the patient. Approximately 15% of breast malignancies will not be visualized mammographically. In the management of a palpable breast mass, a negative mammogram must not discourage biopsy of a clinically suspicious lesion. Electronically Signed By: Chato land/janet:04/20/2022 07:59:54 copy to: JUAN F MORALES letter sent: Normal Exam ACR BI-RADS Category 2: Benign Finding(s) 3342F
== END ==
PROVIDERS: Family Provider Family Medicine; PCP Family Medicine; Referring Provider Family Medicine; Visit Provider Family Medicine
DX: Z12.31 Encounter for screening mammogram for malignant neoplasm of breast (principal); Z85.3 Personal history of malignant neoplasm of breast
CPT/HCPCS: 77063; 77067

== ENCOUNTER → 2022-09-03 08:17 | Outpatient (CLI) | payer MEDICARE, OTHER, SELFPAY ==
--- NOTE | 2022-09-03 08:18 | DI.RAD.S_ITS ---
PROCEDURE: XR LUMBAR SPINE MIN 4V INDICATIONS: low back pain TECHNIQUE: 5 views of the lumbar spine were acquired, including bilateral oblique views. COMPARISON: [facility], , L-SPINE 2-3 VIEWS, 05/05/2012, 8:52. FINDINGS: Bones: 5 nonrib-bearing vertebrae are present. Mild dextrocurvature of the lumbar spine. Mild retrolisthesis of L3 on L4. Multilevel degenerative changes of the lumbar spine with facet arthropathy, mild osteophyte formation and mild disc height loss.. No vertebral body compression fractures. No suspicious bony lesions. Soft tissues: Overlying bowel gas pattern is normal. No suspicious soft tissue calcifications. Oblique images: No definite pars defects. IMPRESSION: Multilevel degenerative changes of the lumbar spine. No acute fractures. Dictated by: Mateusz Guerrero M.D. on 09/03/2022 at 9:00 Approved by: Mateusz Guerrero M.D. on 09/03/2022 at 9:02
== END ==
PROVIDERS: Family Provider Family Medicine; PCP Family Medicine; Referring Provider Anesthesiology; Visit Provider Anesthesiology
DX: M47.816 Spondylosis without myelopathy or radiculopathy, lumbar region (principal); M54.50 Low back pain, unspecified
CPT/HCPCS: 72110; 99214

== ENCOUNTER 2023-03-10 08:13 | Outpatient (CLI) | payer MEDICARE, OTHER, SELFPAY ==
[2023-03-10] VITALS (8 sets, daily range): BP systolic 112–175; BP diastolic 60–81; PULSE 59–77; RESP 14–21; TEMP 36.7; O2SAT 96–98
[2023-03-10] MEDS: MIDAZOLAM 2 MG/2 ML VIAL 1 MG IV (08:50)
[2023-03-10] MEDS: BUPIVACAINE 0.5% (PF) 10 ML VIAL 5 ML INJ (08:54)
[2023-03-10] MEDS: iopamidoL 15 ML VIAL 3 ML INJ (08:54)
--- NOTE | 2023-03-10 09:00 | DI.RAD.S_ITS ---
PROCEDURE: PAIN L/S FACET INJ/BLK 1ST CASSY INDICATIONS: SPONDYLOSIS COMPARISON: None. FINDINGS: Fluoroscopic spot filming was performed to verify placement of spinal needles at the bilateral L3 through L5 level(s), as labeled on the films. Appropriate location(s) of the needle tip(s) was confirmed by injection of iodinated contrast. IMPRESSION: Fluoro guidance was provided intraoperatively for L3, L4, and L5 bilateral medial branch block performed by the ordering physician. Dictated by: Familia Zuñiga M.D. on 03/10/2023 at 12:37 Approved by: Familia Zuñiga M.D. on 03/10/2023 at 12:40
--- NOTE | 2023-03-10 11:56 | P.PCN_ITS ---
Date/Time/Diagnoses Date of procedure: 03/10/23 Time of procedure: 09:00 Procedure Notes Physician: Kamran Franco Total Fluoroscopy time (seconds): 20 Total sedation minutes: 17 Procedure in detail & Post-procedure care: Bilateral L3, 4, 5 Lumbar Medial Branch Blocks Indications: Tasha is presenting for treatment of lumbar spondylosis with low back pain. Preoperative diagnosis: Lumbar spondylosis Postoperative diagnosis: Same Pre-procedure History: F Patient demonstrates today moderate to severe non- radicular back pain without neurologic deficit aggravated by hyperextension yes Back pain greater than leg pain? F yes Patient today has tenderness over the suspected joint(s) yes History of post-traumatic injury? no Hypertrophic arthropathy F yes Back pain associated with suspected motion segment instability, hypermobility or pseudoarthrosis no Focused Examination: Ax3 Mood and affect are normal Vital Signs: VSS ASA: 2 Consent: Following review of allergies and potential side effects/complications, including, but not necessarily limited to, infection, allergic reaction, local tissue breakdown, stroke, temporary or permanent nerve injury, paralysis, and possible , the patient indicated that they understood and agreed to proceed.? An informed consent document was signed by the patient, witnessed by a nurse and placed in the patient's chart.? Additionally, other treatment options including medications and physical therapy were reviewed with the patient. All questions were answered. Site was then marked. Anesthesia: After review of previous anesthetic history and IV conscious sedation, the patient was deemed safe to proceed with today's procedure with IV conscious sedation. IV sedation was accomplished with midazolam 1 mg administered by the RN after order by Dr. Franco. Sedation was titrated to patient comfort during the course of the procedure. Patient remained responsive to all verbal commands. Position: Prone Monitoring: NIBP, Pulse oximetry, 3 lead EKG Needle used: 22 ga 3.5 inch spinal needle Contrast: Isovue 300M Injectate: 0.5% bupivacaine 1 mL per site Procedure: The patient was brought into the procedure room and positioned into the prone position. Skin was prepped with a Chloraprep solution, allowed to air dry, and then draped in sterile fashion.? The right L4-5 and L5-S1 facet joints were visually identified with fluoroscopy. Lidocaine 1% was used to anesthetize the skin over each target destination with a 25ga needle. A 22 ga, 3.5 inch spinal needle was advanced to the location of the medial branch at the junction of the superior articular process and the transverse process at L4,5 and the base of the SAP of the sacrum using intermittent fluoroscopy in the AP view. Isovue 300M contrast 0.2ml was injected at each level outlining the medial borders for each level and the base of the SAP of the sacrum in the AP and lateral views. There was no evidence of vascular or intrathecal uptake. The above injectate was slowly injected at each target destination. The left L4-5 and L5-S1 facet joints were visually identified with fluoroscopy. Lidocaine 1% was used to anesthetize the skin over each target destination with a 25ga needle. A 22 ga, 3.5 inch spinal needle was advanced to the location of the medial branch at the junction of the superior articular process and the transverse process at L4,5 and the base of the SAP of the sacrum using intermittent fluoroscopy in the AP view. Isovue 300M contrast 0.2ml was injected at each level outlining the medial borders for each level and the base of the SAP of the sacrum in the AP and lateral views. There was no evidence of vascular or intrathecal uptake. The above injectate was slowly injected at each target destination. At the end of the procedure the needles were withdrawn and Band- Aids were applied for a dressing. Post Procedure: Patient was taken to the recovery and monitored. The patient was provided a Pain Log to continue to record the patient's response to the target- specific procedure prior to the patient's follow-up visit with the referring physician. Patient was stable upon discharge. Detailed post procedure instructions were provided. Patient was asked to call in the event of worsening pain, fever, weakness, numbness or bladder or bowel incontinence. Based on the medial branches blocked today, if the patient meets insurance criteria for radiofrequency, the treatment should result in the denervation of the bilateral L4-5 and L5-S1 facet joint nerves. We would expect to denervate a total of 4 facets during the radiofrequency ablation.
== END 2023-03-10 09:31 | disposition home or self-care (01) ==
LOC: RAD 08:15
PROVIDERS: Family Provider Family Medicine; PCP Family Medicine; Referring Provider Anesthesiology; Visit Provider Anesthesiology
DX: M47.816 Spondylosis without myelopathy or radiculopathy, lumbar region (principal)
CPT/HCPCS: 64493; 64494; 64495; 99152; J2250

== ENCOUNTER 2023-04-07 09:45 | Outpatient (CLI) | payer MEDICARE, OTHER, SELFPAY ==
[2023-04-07] VITALS (10 sets, daily range): BP systolic 118–200; BP diastolic 61–89; PULSE 56–68; RESP 16–21; TEMP 36.4; O2SAT 95–98
[2023-04-07] MEDS: MIDAZOLAM 2 MG/2 ML VIAL 1 MG IV ×2 (10:27→10:33)
--- NOTE | 2023-04-07 10:30 | DI.RAD.S_ITS ---
PROCEDURE: PAIN L/S FACET INJ/BLK 1ST CASSY INDICATIONS: SPONDYLOSIS COMPARISON: [facility], , PAIN L/S FACET INJ/BLK 1ST CASSY, 03/10/2023, 9:54. FINDINGS: Fluoroscopic spot filming was performed to verify placement of spinal needles at the bilateral L3, L4, and L5 level(s), as labeled on the films. Appropriate location(s) of the needle tip(s) was confirmed by injection of iodinated contrast. IMPRESSION: Fluoroscopic guidance Approved by: Kole Robbins M.D. on 04/07/2023 at 19:12
[2023-04-07] MEDS: LIDOCAINE 2% INJ SDV 5ML 10 ML INJ (10:33)
[2023-04-07] MEDS: iopamidoL 15 ML VIAL 3 ML INJ (10:42)
--- NOTE | 2023-04-07 11:36 | P.PCN_ITS ---
Date/Time/Diagnoses Date of procedure: 04/07/23 Time of procedure: 10:30 Procedure Notes Physician: Kamran Franco Total Fluoroscopy time (seconds): 32 Total sedation minutes: 19 Procedure in detail & Post-procedure care: Bilateral L3, 4, 5 Lumbar Medial Branch Blocks Indications: Tasha is presenting for treatment of lumbar spondylosis with low back pain. Preoperative diagnosis: Lumbar spondylosis Postoperative diagnosis: Same Pre-procedure History: F Patient demonstrates today moderate to severe non- radicular back pain without neurologic deficit aggravated by hyperextension yes Back pain greater than leg pain? F yes Patient today has tenderness over the suspected joint(s) yes History of post-traumatic injury? no Hypertrophic arthropathy F yes Back pain associated with suspected motion segment instability, hypermobility or pseudoarthrosis no Focused Examination: Ax3 Mood and affect are normal Vital Signs: VSS ASA: 2 Consent: Following review of allergies and potential side effects/complications, including, but not necessarily limited to, infection, allergic reaction, local tissue breakdown, stroke, temporary or permanent nerve injury, paralysis, and possible , the patient indicated that they understood and agreed to proceed.? An informed consent document was signed by the patient, witnessed by a nurse and placed in the patient's chart.? Additionally, other treatment options including medications and physical therapy were reviewed with the patient. All questions were answered. Site was then marked. Anesthesia: After review of previous anesthetic history and IV conscious sedation, the patient was deemed safe to proceed with today's procedure with IV conscious sedation. IV sedation was accomplished with midazolam 2 mg administered by the RN after order by Dr. Franco. Sedation was titrated to patient comfort during the course of the procedure. Patient remained responsive to all verbal commands. Position: Prone Monitoring: NIBP, Pulse oximetry, 3 lead EKG Needle used: 22 ga 3.5 inch spinal needle Contrast: Isovue 300M Injectate: 2% lidocaine 1 mL per site Procedure: The patient was brought into the procedure room and positioned into the prone position. Skin was prepped with a Chloraprep solution, allowed to air dry, and then draped in sterile fashion.? The right L4-5 and L5-S1 facet joints were visually identified with fluoroscopy. Lidocaine 1% was used to anesthetize the skin over each target destination with a 25ga needle. A 22 ga, 3.5 inch spinal needle was advanced to the location of the medial branch at the junction of the superior articular process and the transverse process at L4,5 and the base of the SAP of the sacrum using intermittent fluoroscopy in the AP view. Isovue 300M contrast 0.2ml was injected at each level outlining the medial borders for each level and the base of the SAP of the sacrum in the AP and lateral views. There was no evidence of vascular or intrathecal uptake. The above injectate was slowly injected at each target destination. The left L4-5 and L5-S1 facet joints were visually identified with fluoroscopy. Lidocaine 1% was used to anesthetize the skin over each target destination with a 25ga needle. A 22 ga, 3.5 inch spinal needle was advanced to the location of the medial branch at the junction of the superior articular process and the transverse process at L4,5 and the base of the SAP of the sacrum using intermittent fluoroscopy in the AP view. Isovue 300M contrast 0.2ml was injected at each level outlining the medial borders for each level and the base of the SAP of the sacrum in the AP and lateral views. There was no evidence of vascular or intrathecal uptake. The above injectate was slowly injected at each target destination. At the end of the procedure the needles were withdrawn and Band- Aids were applied for a dressing. Post Procedure: Patient was taken to the recovery and monitored. The patient was provided a Pain Log to continue to record the patient's response to the target- specific procedure prior to the patient's follow-up visit with the referring physician. Patient was stable upon discharge. Detailed post procedure instructions were provided. Patient was asked to call in the event of worsening pain, fever, weakness, numbness or bladder or bowel incontinence. Based on the medial branches blocked today, if the patient meets insurance criteria for radiofrequency, the treatment should result in the denervation of the bilateral L4-5 and L5-S1 facet joint nerves. We would expect to denervate a total of 4 facets during the radiofrequency ablation.
== END 2023-04-07 11:15 | disposition home or self-care (01) ==
LOC: RAD 09:46
PROVIDERS: Family Provider Family Medicine; PCP Family Medicine; Referring Provider Anesthesiology; Visit Provider Anesthesiology
DX: M47.816 Spondylosis without myelopathy or radiculopathy, lumbar region (principal)
CPT/HCPCS: 64493; 64494; 99152; J2250

== ENCOUNTER → 2023-04-20 08:49 | Outpatient (CLI) | payer MEDICARE, OTHER, SELFPAY ==
--- NOTE | 2023-04-20 08:54 | DI.MG.S_ITS ---
BILATERAL DIGITAL SCREENING MAMMOGRAM 3D/2D WITH CAD POST LUMPECTOMY: 04/20/2023 CLINICAL: Routine screening. Personal history of right breast cancer. Comparison is made to exams dated: 04/18/2022 mammogram, 04/12/2021 mammogram, and 04/08/2020 mammogram - [facility]. Both breasts are heterogeneously dense, which may obscure small masses (category c / 51-75% glandular tissue). Current study was also evaluated with a Computer Aided Detection (CAD) system. There are benign post operative findings in the right breast. No significant masses, calcifications, or other findings are seen in either breast. There has been no significant interval change. IMPRESSION: BENIGN There is no mammographic evidence of malignancy. A 1 year screening mammogram is recommended. This exam was interpreted at Station ID: [id number]. NOTE: For mammograms, a report in lay terms will be sent to the patient. Approximately 15% of breast malignancies will not be visualized mammographically. In the management of a palpable breast mass, a negative mammogram must not discourage biopsy of a clinically suspicious lesion. Electronically Signed By: Marci Duong M.D., PH.D eb/penrad:04/20/2023 12:07:49 copy to: JUAN F MORALES letter sent: Normal Exam ACR BI-RADS Category 2: Benign Finding(s) 3342F
[2023-04-20 10:31] LABS: Add Manual Diff / Slide Review NO; Basophils Absolute Auto 100 /uL (0-100); Eosinophils Absolute Auto 100 /uL (0-450); Eosinophils Percent Auto 1.9 % (2-4); Hematocrit 42.9 % (36-46); Hemoglobin 14.1 g/dL (12.0-16.0); Lymphocytes Absolute Auto 2000 /uL (1100-4500); Lymphocytes Percent Auto 33.8 % (25-40); Mean Corpuscular Hemoglobin 31.7 PG (26-34); Mean Corpuscular Volume 96.2 fL (80-100); Monocytes Absolute Auto 600 /uL (0-900); Monocytes Percent Auto 9.3 % (3-14); Neutrophils Absolute Auto 3200 /uL (1500-7000); Platelet Count 162 X10^3/uL (150-400); Red Blood Cell Count 4.46 X10^6/uL (4.0-5.2)
[2023-04-20 10:32] LABS: Creatinine Urine Random 22.4 mg/dL
[2023-04-20 10:38] LABS: Microalbumin Urine Random < 0.6 mg/dL (0-1.6)
[2023-04-20 10:54] LABS: Prothrombin Time 11.8 SECONDS (9.4-12.5)
[2023-04-20 10:56] LABS: PTT Partial Thromboplastin Tim 37 SECONDS (25.1-36.5)
[2023-04-20 10:59] LABS: Cholesterol 215 mg/dL (140-199); HDL Cholesterol 45 mg/dL (40-60); LDL Cholesterol Calculated 153 mg/dL (<100); Triglycerides 83 mg/dL (35-150)
== END ==
PROVIDERS: Family Provider Family Medicine; PCP Family Medicine; Referring Provider Internal Medicine Hematology & Oncology; Visit Provider Internal Medicine Hematology & Oncology
DX: Z12.31 Encounter for screening mammogram for malignant neoplasm of breast (principal); Z85.3 Personal history of malignant neoplasm of breast; R92.333 Mammographic heterogeneous density, bilateral breasts; D64.9 Anemia, unspecified; R23.3 Spontaneous ecchymoses; E78.00 Pure hypercholesterolemia, unspecified; R73.03 Prediabetes; I10 Essential (primary) hypertension
CPT/HCPCS: 36415; 77063; 77067; 80061; 82043; 82570; 85025; 85610; 85730

== ENCOUNTER → 2023-08-09 14:53 | Outpatient (CLI) | payer MEDICARE, OTHER, SELFPAY ==
--- NOTE | 2023-08-09 | DI.RAD.S_ITS ---
PROCEDURE: XR DEXA AXIAL SKELETON INDICATIONS: AGE RELATED OSTEOPOROSIS COMPARISON: [facility], CR, XR DEXA AXIAL SKELETON, 12/12/2021, 10:15. FINDINGS: Lumbar Spine: Bone mineral density 0.927 g/cm2, T score -1.0, compared to -1.3. Left Hip: Bone mineral density 0.888 g/cm2, T score -0.4, compared to -0.7. Left Femoral Neck: Bone mineral density 0.686 g/cm2, T score -1.5, compared to -2.3. Right Hip: Bone mineral density 0.867 g/cm2, T score -0.6, unchanged. Right Femoral Neck: Bone mineral density 0.687 g/cm2, T score -1.5, compared to -1.4. Left Forearm: Bone mineral density 0.658 g/cm2, T score -0.6, not previously measured. Fracture Risk Calculation (when applicable): 10-year fracture risk of a major osteoporotic fracture 9.5% and of a hip fracture 1.4%. (T score greater or equal to -1.0 to: NORMAL) (T score from -1.1 to -2.4: OSTEOPENIA) (T score less than or equal to -2.5: OSTEOPOROSIS) IMPRESSION: Overall, persistent osteopenia within the femoral necks bilaterally although improved bone mineral density on the left compared to prior exam. Follow-up guidelines as follows: Osteoporosis: Consider a repeat DEXA and Vertebral Fracture Assessment (VFA) exam in 2 years or sooner if medically necessary, to reassess this patient's status. Osteopenia: Consider a repeat DEXA in 2-3 years to reassess this patient's status, or if there is a new clinical indication. Normal: Consider a repeat DEXA in 5 years or sooner, or if there is a new clinical indication. All treatment decisions require clinical judgment and consideration of individual patient factors, including patient preferences, comorbidities, previous drug use, risk factors not captured in the FRAX model (e.g., frailty, falls, vitamin D deficiency, increased bone turnover, interval significant decline in bone density ) and possible under- or over-estimation of fracture risk by FRAX. In addition, the NOF Guide recommends that FDA-approved medical therapies be considered in postmenopausal women and men age >= 50 years with a: * Hip or vertebral (clinical or morphometric) fracture * T-score of <=-2.5 at the spine or hip * Ten-year fracture probability by FRAX of >= 3% for hip fracture or >=20% for major osteoporotic fracture. People with diagnosed cases of osteoporosis or at high risk for fracture should have regular bone mineral density tests. For patients eligible for Medicare, routine testing is allowed once every 2 years. The testing frequency can be increased to one year for patients who have rapidly progressing disease, those who are receiving or discontinuing medical therapy to restore bone mass, or have additional risk factors. Dictated by: Amina Gayle M.D. on 08/09/2023 at 17:33 Approved by: Amina Gayle M.D. on 08/09/2023 at 17:34
== END ==
PROVIDERS: Family Provider Family Medicine; PCP Family Medicine; Referring Provider Internal Medicine Hematology & Oncology; Visit Provider Internal Medicine Hematology & Oncology
DX: M81.0 Age-related osteoporosis without current pathological fracture (principal); Z85.3 Personal history of malignant neoplasm of breast
CPT/HCPCS: 77080; 77081

== ENCOUNTER 2023-10-06 12:17 | Outpatient (CLI) | payer MEDICARE, OTHER, SELFPAY ==
[2023-10-06] VITALS (12 sets, daily range): BP systolic 125–161; BP diastolic 59–88; PULSE 60–68; RESP 13–19; O2SAT 96–100
--- NOTE | 2023-10-06 13:00 | DI.RAD.S_ITS ---
PROCEDURE: PAIN L/S MED/LAT N RFA BILAT INDICATIONS: SPONDYLOSIS COMPARISON: None. FINDINGS: Fluoroscopic spot filming was performed to verify placement of spinal needles at the L3, L4 level(s), as labeled on the films. Fluoro time 27 seconds, 6 images saved. IMPRESSION: See operative note for details Dictated by: Ranjan Mejia M.D. on 10/06/2023 at 16:09 Approved by: Ranjan Mejia M.D. on 10/06/2023 at 16:10
[2023-10-06] MEDS: MIDAZOLAM 2 MG/2 ML VIAL IV (13:02)
[2023-10-06] MEDS: DEXAMETHASONE 10 MG/ML VIAL INJ (13:04)
[2023-10-06] MEDS: BUPIVACAINE 0.5% (PF) 10 ML VIAL INJ (13:05)
[2023-10-06] MEDS: LIDOCAINE 2% INJ MDV 20ML 10 ML INJ (13:05)
[2023-10-06] MEDS: LIDOCAINE 1% 20 ML INJ (13:05)
[2023-10-06] MEDS: MIDAZOLAM 2 MG/2 ML VIAL 1 MG IV (13:17)
--- NOTE | 2023-10-06 15:18 | P.PCN_ITS ---
Date/Time/Diagnoses Date of procedure: 10/06/23 Time of procedure: 13:00 Procedure Notes Physician: Kamran Franco Total Fluoroscopy time (seconds): 27 Total sedation minutes: 30 Procedure in detail & Post-procedure care: Bilateral L3, 4, 5 Lumbar Medial Branch Radio Frequency Ablation Indications: Tasha presents for treatment of lumbar spondylosis with low back pain. Preoperative diagnosis: Lumbar spondylosis Postoperative diagnosis: Same Focused Examination: Ax3 Mood and affect are normal Vital Signs: VSS ASA: 2 Consent: Following review of allergies and potential side effects/complications, including, but not necessarily limited to, infection, allergic reaction, local tissue breakdown, stroke, temporary or permanent nerve injury, paralysis, and possible , the patient indicated that they understood and agreed to proceed.? An informed consent document was signed by the patient, witnessed by a nurse and placed in the patient's chart.? Additionally, other treatment options including medications and physical therapy were reviewed with the patient. All questions were answered. Site was then marked. Position: Prone Monitoring: NIBP, Pulse oximetry, 3 lead EKG Needle used: 18 guage, 100 mm, 10 mm active tip Anesthesia: Local with IV sedation. After review of previous anesthetic history and IV conscious sedation, the patient was deemed safe to proceed with today's procedure with IV conscious sedation. IV sedation was accomplished with midazolam 3 mg administered by the RN after order by Dr. Franco. Sedation was titrated to patient comfort during the course of the procedure. Patient remained responsive to all verbal commands. Procedure: The patient was brought into the procedure room and positioned into the prone position. Skin was prepped with a Chloraprep solution, allowed to air dry, and then draped in sterile fashion.? The right L4-5 and L5-S1 facet joints were visually identified with fluoroscopy. Lidocaine 1% was used to anesthetize the skin over each target destination with a 25ga needle. An 18 ga, 100 mm RFA needle with a 10 mm active tip was advanced to the location of the medial branch at the junction of the superior articular process and the transverse process at L4,5 and the base of the SAP of the sacrum using intermittent fluoroscopy in the oblique view with caudal tilt. AP and lateral radiographs were taken to confirm proper needle placement. No paresthesias were noted. The stylet was removed and the radiofrequency probe was inserted through the cannula. Each level was individually tested.? Motor stimulation up to 2V elicited multifidus twitching in the lumbar spine. There was no motor stimulation in the lower extremities. After negative aspiration, 1ml of 2% lidocaine was injected at each of the levels and radiofrequency denervation carried out using 80 degrees Celsius for 90 seconds. The needles were then rotated 90 degrees and a second ablation was performed at 80 degrees Celsius for 90 seconds. Next, the left L4-5 and L5-S1 facet joints were visually identified with fluoroscopy. Lidocaine 1% was used to anesthetize the skin over each target destination with a 25ga needle. An 18 ga, 100 mm RFA needle with a 10 mm active tip was advanced to the location of the medial branch at the junction of the superior articular process and the transverse process at L4,5 and the base of the SAP of the sacrum using intermittent fluoroscopy in the oblique view with caudal tilt. AP and lateral radiographs were taken to confirm proper needle plac ement. No paresthesias were noted. The stylet was removed and the radiofrequency probe was inserted through the cannula. Each level was individually tested. Motor stimulation up to 2V elicited multifidus twitching in the lumbar spine. There was no motor stimulation in the lower extremities. After negative aspiration, 1ml of 2% lidocaine was injected at each of the levels and radiofrequency denervation carried out using 80 degrees Celsius for 90 seconds. The needles were then rotated 90 degrees and a second ablation was performed at 80 degrees Celsius for 90 seconds. After ablation, a mixture of 10 mg dexamethasone with 0.5% bupivacaine 5 mL was injected in equal amounts among the sites (1 mL per site). At the end of the procedure the needles were withdrawn and Band-Aids were applied for a dressing. This procedure is expected to denervate the bilateral L4-5 and L5-S1 facet joints. Post Procedure: Patient was taken to the recovery and monitored. The patient was provided a Pain Log to continue to record the patient's response to the target- specific procedure prior to the patient's follow-up visit with the referring physician. Patient was stable upon discharge. Detailed post procedure instructions were provided. Patient was asked to call in the event of worsening pain, fever, weakness, numbness or bladder or bowel incontinence. Complications: None
== END 2023-10-06 13:54 | disposition home or self-care (01) ==
LOC: RAD 12:18
PROVIDERS: Family Provider Family Medicine; PCP Family Medicine; Referring Provider Anesthesiology; Visit Provider Anesthesiology
DX: M47.816 Spondylosis without myelopathy or radiculopathy, lumbar region (principal)
CPT/HCPCS: 64635; 64636; 99152; 99153; J1100; J2250

== ENCOUNTER 2023-11-18 16:24 | Emergency (ER) | payer MEDICARE, OTHER, SELFPAY ==
[2023-11-18 16:30] VITALS: BP 135/62; PULSE 62; RESP 18; TEMP 36.6; O2SAT 98; BMI 32.4
--- NOTE | 2023-11-18 16:34 | DI.RAD.S_ITS ---
PROCEDURE: XR WRIST RT MIN 3V INDICATIONS: fall/wrist pain TECHNIQUE: Four views of the wrist were acquired. COMPARISON: Located Within [facility], CR, XR WRIST LT MIN 3V, 08/10/2021, 10:47. FINDINGS: Bones: Mildly decreased mineralization. There is a comminuted, intra-articular, impacted fracture of the distal radius extending to the distal articular surface. There is a mildly displaced ulnar styloid fracture. No definite radiocarpal dislocation. Soft tissues: No suspicious soft tissue calcifications. IMPRESSION: Comminuted, intra-articular, impacted distal radius fracture. Mildly displaced ulnar styloid fracture. Dictated by: Cyndi Fernandez M.D. on 11/18/2023 at 17:15 Approved by: Cyndi Fernandez M.D. on 11/18/2023 at 17:16
[2023-11-18 16:48] VITALS: PULSE 65
--- NOTE | 2023-11-18 17:11 | ED_ITS ---
<Statement entered by Byron Esqueda DO - 11/18/23 17:40> Dr. Esqueda: I was immediately available in the department for consultation. Documentation has been reviewed. I agree with assessment and plan. HPI - Extremity Injury (Upper) General Chief Complaint: Extremity Injury, Upper Stated Complaint: rt wrist injury Time Seen by Provider: 11/18/23 16:37 Source: patient Mode of arrival: Ambulatory History of Present Illness HPI narrative: This patient is a 73-year-old female who presents today for status post FOOSH injury after walking her dog and her dog tugging on the leash. She states that she injured her right wrist and did not sustain any type of head strain, chest wall strength and she denies neck pain, headache, blurred vision or any symptoms prior to the fall. She is concerned about a possible fracture of the right wrist. No treatments have been tried for this. The patient states that she has a history of osteoporosis status post chemotherapy. She also denies shoulder or elbow pain affecting the right upper extremity. She denies paresthesias distally to the digits of the fingers. The fall apparently took place just prior to her arrival. Related Data Home Medications Medication Instructions Recorded Confirmed acetaminophen 500 mg tablet 500 mg PO Q6H PRN Pain (Scale 11/03/17 10/28/23 (Tylenol Extra Strength) Score 4-6) Respironics Dreamstation CPAP #1 ea 05/18/18 10/28/23 ibuprofen 125 mg-acetaminophen 250 1 tab PO Q8H PRN 10/15/22 10/28/23 mg tablet (Advil Dual Action) Previous Rx's Medication Instructions Recorded lisinopril 5 mg tablet 5 mg PO DAILY #90 tabs 04/13/23 atorvastatin 20 mg tablet 20 mg PO BEDTIME #90 tabs 08/03/23 hydrocodone 5 mg-acetaminophen 325 1 tab PO Q8H PRN pain #20 tabs 11/18/23 mg tablet Allergies Allergy/AdvReac Type Severity Reaction Status Date / Time No Known Drug Allergies Allergy Unverified 10/28/23 09:29 Review of Systems Review of Systems Narrative: General: See HPI MSK: See HPI All other review of systems have been reviewed and are ultimately negative unless otherwise stated in the HPI Patient History Medical History Lumbar facet arthropathy Greater trochanteric bursitis of both hips Bilateral hip pain Lumbar spondylosis Chronic low back pain Essential hypertension Osteoporosis (~2013) Fractures (~2008) Chronic back pain (~1998) Measles (~1956) Chicken pox (~1955) Endometriosis (~1989) Breast cancer (~2013) Surgical History Anesthesia History of lumpectomy (~2013) Torn rotator cuff (~2010) History of ankle surgery (~2008) History of hysterectomy (~1989) Family History Unknown No problems noted. Social History marital status: number of children: 2 household members: spouse lives independently: Yes caregiver/support person: No housing: house occupational status: previously employed current occupational exposures/hazards: No seatbelt use: always Smoking Status: Never smoker second hand exposure: No alcohol intake: current substance use type: does not use Smoking Status: Never smoker alcohol intake frequency: holidays/special occasions only Substance Use Type: does not use Exam Initial Vital Signs Initial Vital Signs: Vital Signs Temperature 98 F 11/18/23 16:30 Pulse Rate 62 11/18/23 16:30 Respiratory Rate 18 11/18/23 16:30 Blood Pressure 135/62 11/18/23 16:30 Pulse Oximetry 98 11/18/23 16:30 Oxygen Delivery Method Room Air 11/18/23 16:30 Const General: cooperative, healthy appearing, comfortable, well developed and well groomed [facility] Head: normal to inspection and normocephalic Ears: hearing grossly normal bilaterally and external ears normal Nose: external nose normal and nares normal Face and sinus: normal facial exam Eyes General: Yes appearance normal, both eyes and all related structures Visual Pathak: normal visual pathak by confrontation Pupils: PERRL EOM: EOM intact bilaterally Neck Neck: normal visual inspection, full ROM and no meningeal signs Resp Effort & Inspection: normal respiratory effort and able to speak in complete sentences Cardio Rate: regular rate Rhythm: regular rhythm Heart Sounds: S1 normal and S2 normal Pulses: radial pulses present and ulnar radial pulses present Back/Spine/Pelvis Back: normal to inspection and back tenderness Skin General: no rashes or lesions noted, elasticity normal and turgor normal Neuro General: patient alert, patient awake, patient oriented x3 and gait normal Extrem Right upper extremity: normal capillary refill and wrist Other: Decreased range of motion of the right wrist secondary to pain. Left upper extremity reveals full range of motion. Neurovascular status distally intact with capillary refill less than 2 seconds. Psych Appearance: grossly normal and well kempt Procedures [facility] Procedure Name of Procedure: Splint application Location: Right wrist/forearm Technique/Description of procedure performed: The patient was fitted for the thumb spica splint of the right upper extremity. This was placed by nursing staff under my direct supervision. Neurovascular status remained intact pre and post splint application. Patient tolerated procedure well. She was also fitted for an arm sling. Patient was then prepped for discharge home. Patient tolerated procedure: Well and No complications Course Course Course Narrative: Patient was seen and examined. She had the right wrist x-ray series performed, which were interpreted by me and revealed a comminuted distal radius fracture according to my interpretation. There also appears to be a fracture without displacement or dislocation of the distal ulna. Patient was fitted for the splint as previously stated. She was then prepped for discharge home Orders Ordered: ED Orders 11/18/23 16:34 XR wrist RT min 3V Stat Vital Signs Vital signs: Vital Signs - 8 hr 11/18/23 16:30 11/18/23 16:48 Temperature 98 F Pulse Rate 62 Pulse Rate [Right Radial] 65 Respiratory Rate 18 Blood Pressure 135/62 Pulse Oximetry 98 Oxygen Delivery Method Room Air [facility] - Extremity Injury (Upper) Differential Diagnosis Differential diagnosis: Likely sprain and strain of wrist, fracture of wrist, Colles' fracture, fracture of hand and fracture of clavicle Imaging Data See above: My Impression: See above [facility] Narrative Medical decision making narrative: At this time, it appears that the patient has sustained a fracture of both the distal radius and ulna. This will likely require surgery on an outpatient basis. Patient was fitted for a splint as previously stated. There was no neurovascular injury noted on exam. I do not believe she sustained any type of elbow fracture since she has full range of motion of the hand as well as no pain of the right shoulder therefore, I do not believe there is a shoulder dislocation. She denies head strike and neck pain. I do not believe she requires any type of higher level imaging such as a CT of the head or C-spine. I do not believe she sustained any type of distracting injury. Patient appears clinically stable to follow up with [facility] which she has an established relationship with and she understands treatment plan. There are no additional questions at the time of discharge. As always, patient was advised to return here immediately if worse. Discharge Plan Departure Patient Disposition: Home Clinical Impression: Fracture of wrist Qualifiers: Encounter type: initial encounter Fracture type: closed Laterality: right Qualified Code(s): S62.101A - Fracture of unspecified carpal bone, right wrist, initial encounter for closed fracture Fall Qualifiers: Encounter type: initial encounter Qualified Code(s): W19.XXXA - Unspecified fall, initial encounter Instructions: DI for Distal Radius Fracture Activity Restrictions/Additional Instructions: Splint care was discussed Follow-up with [facility] next week Return here immediately if worse Prescriptions: New hydrocodone-acetaminophen 5-325 mg tablet 1 tab PO Q8H PRN (Reason: pain) Qty: 20 0RF No Action lisinopril 5 mg tablet 5 mg PO DAILY Qty: 90 3RF atorvastatin 20 mg tablet 20 mg PO BEDTIME Qty: 90 1RF acetaminophen [Tylenol Extra Strength] 500 mg Tablet 500 mg PO Q6H PRN (Reason: Pain (Scale Score 4-6)) Advil Dual Action 125-250 mg tablet 1 tab PO Q8H PRN (DME) Respironics Dreamstation CPAP Qty: 1 Dose Instruction: As directed Patient Comments: Pressure: 6-12 cmH2O DME: [facility] Rx Instructions: As directed Referrals: Eli Carroll MD [Primary Care Provider] - Stand Alone Forms: Patient Portal/API
[2023-11-18 18:06] VITALS: BP 133/60; PULSE 62; RESP 18; O2SAT 97
== END 2023-11-18 18:30 | disposition home or self-care (01) ==
PROVIDERS: Emergency Provider Physician Assistant; Family Provider Family Medicine; PCP Family Medicine
DX: S62.101A Fracture of unspecified carpal bone, right wrist, initial encounter for closed fracture (principal); W18.30XA Fall on same level, unspecified, initial encounter
CPT/HCPCS: 29125; 73110; 99283

== ENCOUNTER → 2024-03-21 09:24 | Outpatient (CLI) | payer MEDICARE, OTHER, SELFPAY ==
[2024-03-21 11:23] LABS: Alanine Aminotransferase 17 IU/L (<35); Albumin 4.1 g/dL (3.5-5.0); Albumin Globulin Ratio 1.7 (1.0-2.8); Alkaline Phosphatase 57 U/L (38-126); Aspartate Aminotransferase 20 IU/L (14-36); BUN Creatinine Ratio 27.3 (6-22); Bilirubin Total 0.5 mg/dL (0.2-1.3); Blood Urea Nitrogen 21 mg/dL (7-17); Carbon Dioxide 27 mmol/L (22-32); Chloride 105 mmol/L (98-107); Cholesterol 209 mg/dL (140-199); Estimated Glomerular Filt Rate > 60 mL/min (>60); Globulin 2.4 g/dL (1.7-4.1); Glucose 90 mg/dL (80-110); HDL Cholesterol 45 mg/dL (40-60); HEMOLYSIS < 15 (0-50); LDL Cholesterol Calculated 145 mg/dL (<100); Potassium 4.4 mmol/L (3.4-5.1); Sodium 139 mmol/L (137-145); Total Protein 6.5 g/dL (6.3-8.2); Triglycerides 95 mg/dL (35-150)
[2024-03-21 12:14] LABS: Creatinine Urine Random 38.27 mg/dL
[2024-03-21 12:21] LABS: Microalbumin Urine Random 0.8 mg/dL (0-1.6)
== END ==
PROVIDERS: Family Provider Family Medicine; PCP Family Medicine; Referring Provider Family Medicine; Visit Provider Family Medicine
DX: I10 Essential (primary) hypertension (principal)
CPT/HCPCS: 36415; 80053; 80061; 82043; 82570